=== PATIENT | male | born 1965 | race Caucasian/White ===

== ENCOUNTER 2017-07-20 07:01 | Day surgery (SDC) | payer OTHER ==
[~2017-07-20] VITALS: Ht 172.7 cm; Wt 104.3 kg
[2017-07-20 07:15] VITALS: BP 148/96
[2017-07-20 10:23] VITALS: BP 136/83
== END 2017-07-20 10:15 | disposition home or self-care (01) ==
LOC: GI 07:01 → OR 08:00 → GI 10:15
PROVIDERS: Internal Medicine Gastroenterology
PROC: 0DBP8ZZ Excision of Rectum, Via Natural or Artificial Opening Endoscopic (ICD-10-PCS; principal; 2017-07-20 09:00)
DX: Z12.11 Encounter for screening for malignant neoplasm of colon (principal); D12.8 Benign neoplasm of rectum
CPT/HCPCS: 45378; J1200; J1610; J2250; J2310; J3010; J3490

== ENCOUNTER 2017-07-28 21:51 | Inpatient (IN) | payer OTHER ==
[~2017-07-28] VITALS: Ht 172.7 cm; Wt 104.5 kg
[2017-07-28 21:56] VITALS: Ht 172.7 cm; Wt 104.5 kg
[2017-07-28 22:52] LABS: CALCIUM 8.7 mg/dL (8.5-10.1); CHLORIDE SERUM 101 mmol/L (98-107); CREATININE SERUM 1.2 mg/dL (0.7-1.3); GFR1 > 60 mL/min; GLUCOSE SERUM 134 mg/dL (74-106); POTASSIUM SERUM 3.9 mmol/L (3.5-5.1); SODIUM SERUM 137 mmol/L (136-145)
[2017-07-28 22:56] LABS: ALBUMIN 3.4 g/dL (3.4-5.0); ALKALINE PHOSPHATASE 82 U/L (46-116); ALT/SGPT 32 U/L (16-63); AST/SGOT 16 U/L (15-37); BILIRUBIN TOTAL 0.8 mg/dL (0.20-1.00); TOTAL PROTEIN, SERUM 7.3 g/dL (6.4-8.2)
[2017-07-28 23:00] LABS: BASOPHIL % 0.1 % (0-2); PLATELET COUNT 241 x10^3mcL (130-400); RED CELL DISTRIBUTION WIDTH 13.1 % (11.5-14.5)
[2017-07-29 00:05] LABS: microscopic required? NO
[2017-07-29 00:33] LABS: urine erythrocyte NEGATIVE (NEGATIVE)
[2017-07-29] MEDS ORDERED: FLO4 PO (03:02)
[2017-07-29] MEDS ORDERED: ZOFRAN8 MG PO (03:02)
[2017-07-29] MEDS ORDERED: NORCO1 TA2 PO (03:02)
[2017-07-29 03:38] VITALS: BP 151/86
[2017-07-29 05:45] VITALS: BP 128/82
[2017-07-29 08:34] VITALS: BP 117/75
[2017-07-29 20:24] VITALS: BP 137/84
[2017-07-30 05:45] VITALS: BP 136/87
[2017-07-30 06:51] LABS: CALCIUM 8.6 mg/dL (8.5-10.1); CARBON DIOXIDE 26.3 mmol/L (21-32); CREATININE SERUM 1.4 mg/dL (0.7-1.3); POTASSIUM SERUM 4.1 mmol/L (3.5-5.1)
[2017-07-30 07:01] LABS: ALBUMIN 2.6 g/dL (3.4-5.0); BILIRUBIN DIRECT 0.15 mg/dL (0.0-0.2); BILIRUBIN TOTAL 0.4 mg/dL (0.20-1.00); TOTAL PROTEIN, SERUM 6.4 g/dL (6.4-8.2)
[2017-07-30 08:05] LABS: BASOPHIL % 0.6 % (0-2); PLATELET COUNT 236 x10^3mcL (130-400)
[2017-07-30 09:44] VITALS: BP 149/89
[2017-07-30 10:53] VITALS: BP 149/89
== END 2017-07-30 13:30 | disposition home or self-care (01) | DRG 251 ==
LOC: ED 21:51 → MU 07-29 02:50
PROVIDERS: Emergency Medicine; Internal Medicine
DX: R10.9 Unspecified abdominal pain (principal); E66.9 Obesity, unspecified; D72.829 Elevated white blood cell count, unspecified; Z68.35 Body mass index [BMI] 35.0-35.9, adult
CPT/HCPCS: 78226; 83880; A9537; J1650; J1885; J1956; J2543; J3490; J7030; Q0092